=== PATIENT | female | born 1950 | race Caucasian/White ===

== ENCOUNTER → 2020-06-11 | Day surgery (SDC) | payer MEDICARE, OTHER ==
[~2020-06-11] MED LIST: Lactated Ringers 1,000 ML IV ONE
[2020-06-11] MEDS: Lactated Ringers 1,000 ML IV SCH (09:05)
--- NOTE | 2020-06-11 13:51 | OR ---
DATE OF OPERATION: 06/11/2020 PREOPERATIVE DIAGNOSIS: POSITIVE COLOGUARD. POSTOPERATIVE DIAGNOSIS: POSITIVE COLOGUARD. SURGEON: Dima Boudreaux MD PROCEDURE: DIAGNOSTIC COLONOSCOPY WITH FORCEPS POLYP REMOVAL X4. ANESTHESIA: MAC. COMPLICATIONS: None. SPECIMEN: Four separate sessile polyps, see report, all 0.5 cm or less. FINDINGS: 1. Full-length colonoscopy. 2. Moderate sigmoid diverticulosis. 3. Four tubular adenomas, all 0.5 cm or smaller. RECOMMENDATIONS: Followup colonoscopy in 3 to 5 years pending path report. INDICATIONS: Mrs. Michel had a prior colonoscopy I believe 6 years ago which was reported as normal. She had recently had of Cologuard which was positive. She was sent for a diagnostic endoscopy. DESCRIPTION OF PROCEDURE: The patient was prepped and draped, placed in the left lateral decubitus position. A lubricated Olympus colonoscope was inserted and easily advanced to the cecum. Direct visualization of the ileocecal valve and appendiceal orifice was accomplished. The bowel prep was adequate. Upon withdrawal of the scope, the cecum and most of the ascending colon were benign. Just prior to the hepatic flexure, the patient had a small sessile polyp along the haustral fold, removed in its entirety with forceps biopsy x2. The rest of the transverse colon and descending colons were benign. In the proximal sigmoid colon, the patient had another 4 mm sessile polyp removed with 2 forceps biopsies. The distal sigmoid had a third polyp, a little larger than the other two. It took 3 forceps biopsies to remove in its entirety and lastly the patient had a small likely hyperplastic polyp in the rectal vault also removed with a forceps. She had significant diverticular disease in the sigmoid colon, but no inflammatory changes. No other vascular abnormalities or signs of colitis. The rectal vault was benign. Retroflexion showed no perianal lesions. Air was suctioned and the scope removed without complication. LILLIAN/ROLANDO /[id number]
== END ==
LOC: CC.SDS 08:37
PROVIDERS: ATTEND Family Medicine
DX: D12.5 Benign neoplasm of sigmoid colon (principal); D12.8 Benign neoplasm of rectum; K57.30 Diverticulosis of large intestine without perforation or abscess without bleeding; E78.5 Hyperlipidemia, unspecified; F17.200 Nicotine dependence, unspecified, uncomplicated; Z79.899 Other long term (current) drug therapy
CPT/HCPCS: 45380; J7120